=== PATIENT | male | born 1970 ===

== ENCOUNTER 2021-09-13 08:34 | Emergency (ER) | payer BC, OTHER ==
[~2021-09-13] VITALS: Ht 162.6 cm; Wt 79.4 kg
[2021-09-13 09:39] VITALS: BP 142/93
[2021-09-13] MEDS ORDERED: LIDOCAINE 1% HCL (LOCAL ANESTH.) INJ 20ML MDV ONE (09:57)
[2021-09-13] MEDS ORDERED: cefTRIAXone SOD 1,000 MG VL IM ONE (10:00)
[2021-09-13] MEDS ORDERED: LIDOCAINE VISCOUS 2% 15ML UD PO ONE (10:00)
== END 2021-09-13 10:25 | disposition home or self-care (01) ==
LOC: ER 08:34
DX: J03.90 Acute tonsillitis, unspecified (principal)
CPT/HCPCS: 96372; 99283; J0696; J2001